=== PATIENT | female | born 1970 | race Caucasian/White ===

== ENCOUNTER 2017-11-15 12:03 | Outpatient (CLI) | payer BC ==
[~2017-11-15] VITALS: Ht 166.4 cm; Wt 82.6 kg
[2017-11-15] MEDS ORDERED: POTA99TA18 PO (12:17)
[2017-11-15] MEDS ORDERED: CYAN50008 PO (12:17)
[2017-11-15] MEDS ORDERED: MAGN250T13 PO (12:17)
[2017-11-15] MEDS ORDERED: ESTR1TAB24 PO (12:17)
[2017-11-15 12:27] VITALS: BP 121/84
[2017-11-15 13:13] LABS: BASOPHILS % (AUTO) 0 % (0-10); EOSINOPHILS # (AUTO) 0.1 10^3/uL (0.0-0.3); EOSINOPHILS % (AUTO) 1 % (0-10); LYMPHOCYTES # (AUTO) 1.4 X 10^3 (1.0-4.0); LYMPHOCYTES % (AUTO) 16 % (12-44); MEAN CORPUSCULAR HEMOGLOBIN 35 PG (25-34); MEAN CORPUSCULAR HGB CONC 34 G/DL (32-36); MEAN CORPUSCULAR VOLUME 103 FL (80-99); MEAN PLATELET VOLUME 9.9 FL (7.4-10.4); MONOCYTES # (AUTO) 0.6 X 10^3 (0.0-1.0); MONOCYTES % (AUTO) 7 % (0-12); NEUTROPHILS % (AUTO) 77 % (42-75); PLATELET COUNT 234 10^3/uL (130-400); RED BLOOD COUNT 4.43 10^6/uL (4.35-5.85); WHITE BLOOD COUNT 9.1 10^3/uL (4.3-11.0)
[2017-11-17] MEDS ORDERED: DOCU100C37 PO (12:25)
[2017-11-17] MEDS ORDERED: OXYC-465 PO (12:25)
[2017-11-17] MEDS ORDERED: IBUP-1780 PO (12:25)
== END 2017-11-15 13:26 | disposition home or self-care (01) ==
LOC: PREOP 12:03
PROVIDERS: ATTEND Obstetrics & Gynecology
DX: Z01.812 Encounter for preprocedural laboratory examination (principal); Z11.2 Encounter for screening for other bacterial diseases; R32 Unspecified urinary incontinence
CPT/HCPCS: 36415; 85025; 86850; 86900; 86901; 87081

== ENCOUNTER 2017-11-17 10:02 | Day surgery (SDC) | payer BC, OTHER ==
[~2017-11-17] VITALS: Ht 166.4 cm; Wt 82.6 kg
[~2017-11-17 10:02] MED LIST: CYAN50008 PO; ESTR1TAB24 PO; MAGN250T13 PO; POTA99TA18 PO
[2017-11-17] MEDS ORDERED: CATHETER FLUSH 10 ML SYR IV PRN (10:30)
[2017-11-17] MEDS ORDERED: ceFAZolin 1 GM/NS 50 ML IVPB IV ONE ×2 (10:30)
[2017-11-17] MEDS ORDERED: LACTATED RINGERS 1,000 ML IV PRN (11:18)
[2017-11-17] MEDS ORDERED: LEVO150T6 PO (11:20)
[2017-11-17 11:26] VITALS: BP 115/85
[2017-11-17] MEDS ORDERED: ceFAZolin INJECTION 1,000 MG in NS (IVPB) 50 ML IV ONE (11:30)
[2017-11-17] MEDS ORDERED: ESTROGENS CONJ IV 25 MG/5 ML (PREMARIN) VIAL IM ONE (11:30)
[2017-11-17] MEDS ORDERED: BUP/EPI 0.5% 1:200,000 (MARCAINE) 10ML VIAL IJ ONE (12:04)
[2017-11-17] MEDS ORDERED: ESTRADIOL VAGINAL CREAM 42.5 GM (ESTRACE) VG ONE (12:04)
[2017-11-17] MEDS ORDERED: LIDOCAINE PF 2% 5 ML (XYLOCAINE) VIAL ONE (12:06)
[2017-11-17] MEDS ORDERED: ONDANSETRON 4 MG/2 ML (SDV) Z0FRAN ONE ×2 (12:06→13:55)
[2017-11-17] MEDS ORDERED: ROCURONIUM 50 MG/5 ML (ZEMURON) VIAL IV ONE ×2 (12:06→13:33)
[2017-11-17] MEDS ORDERED: MIDAZOLAM 2 MG/2 ML (VERSED) VIAL ONE (12:06)
[2017-11-17] MEDS ORDERED: proPOfol 200 MG/20 ML (DIPRIVAN) VIAL IV ONE (12:06)
[2017-11-17] MEDS ORDERED: KETOROLAC 30 MG/ML VIAL ONE ×2 (12:07→13:55)
[2017-11-17] MEDS ORDERED: fentaNYL INJECTION 250 MCG/5 ML AMP ONE (12:07)
[2017-11-17] MEDS ORDERED: DEXAMETHASONE 10 MG/ML (DECADRON) 1 ML VIAL ONE (12:07)
--- NOTE | 2017-11-17 12:17 | Progress Note-Pre Operative ---
Pre-Operative Progress Note H&P Reviewed The H&P was reviewed, patient examined and no changes noted. Date Seen by Provider: Nov 17, 2017 Time Seen by Provider: 12:17 Date H&P Reviewed: Nov 17, 2017 Time H&P Reviewed: 12:17 Pre-Operative Diagnosis: uterovaginal prolapse and stress urinary incontinence MK OH MD Nov 17, 2017 12:17 pm
--- NOTE | 2017-11-17 12:18 | Progress Note-Post Operative ---
Post-Operative Progess Note Surgeon (s)/Live In Housekeeper Nanny (s) Surgeon MK OH MD Live In Housekeeper Nanny: Silva Bunch Pre-Operative Diagnosis uterovaginal prolapse and stress urinary incontinence Post-Operative Diagnosis same with pathology pending Procedure & Operative Findings Date of Procedure 11/17/17 Procedure Performed/Findings total laparoscopic hysterectomy and bilateral salpingo-oophorectomy with anterior posterior vaginal repairs with enterocele repair as well as a pubovaginal sling and cystoscopy performed by Dr. Braun Anesthesia Type GETA Estimated Blood Loss Estimated blood loss (mL): 100cc Specimens/Packing Specimens Removed uterus tubes and ovaries Packing: Kerlix gauze to the vagina MK OH MD Nov 17, 2017 12:18
[2017-11-17] MEDS ORDERED: DOCU100C37 PO (12:25)
[2017-11-17] MEDS ORDERED: OXYC-465 PO (12:25)
[2017-11-17] MEDS ORDERED: IBUP-1780 PO (12:25)
--- NOTE | 2017-11-17 12:26 | Discharge Instructions ---
Discharge Instructions Discharge Medications New, Converted or Re-Newed RX: RX on Chart Patient Instructions Patient Instructions: aas directed Return to The Hospital For: as directed Activity & Diet Discharge Diet: No Restrictions Activity as Tolerated: No Orders-Post D/C & Referrals Follow Up Appt: return to clinic on Tuesday, November 21, 2017 at 930 a.m. for staple removal Call to make follow up appt. for patient in 4 weeks. follow-up with Dr. Braun per his instructions Activity: Rest for 24 hours, than as tolerated. Wound Care: May remove Band-Aid tomorrow. Replace as desired. Keep incisions clean and dry. Wash daily with soap and water. Please call in RX to patient pharmacy. Diet: As tolerated-Clear Liquids only if nauseated. May shower or tub bathe as desired. No driving for 24 hours, no alcoholic beverages for 24 hours, and nothing per vagina (no tampons, douching, or intercourse) for 2 weeks. Patient to return to the clinic as soon as possible for: Temperature greater than 101F, Severe Pain, Foul discharge from incision or vagina, Excessive Bleeding (more than a period). MK OH MD Nov 17, 2017 12:26 pm
[2017-11-17] MEDS ORDERED: BUTORPHANOL INJ 2 MG/ML (STADOL) VIAL IV PRN (12:30)
[2017-11-17] MEDS ORDERED: WATER (STERILE) FOR INJ 10 ML BTL INJ ONE (12:30)
[2017-11-17] MEDS ORDERED: KETOROLAC 30 MG/ML VIAL IVP SCH (12:30)
[2017-11-17] MEDS ORDERED: PROCHLORPERAZINE 10 MG/2ML INJ (COMPAZINE) IV PRN (12:30)
[2017-11-17] MEDS ORDERED: BENZOCAINE/MENTHOL (DERMOPLAST) 56 ML CAN TP PRN (12:30)
[2017-11-17] MEDS ORDERED: ESTROGENS CONJ IV 25 MG/5 ML (PREMARIN) VIAL IVP ONE (12:30)
[2017-11-17] MEDS ORDERED: SEVOFLURANE (ULTANE) 15 ML INHAL SOLN ONE ×3 (12:54→13:58)
--- NOTE | 2017-11-17 14:25 | Progress Note-Pre Operative ---
Pre-Operative Progress Note H&P Reviewed The H&P was reviewed, patient examined and no changes noted. Date Seen by Provider: Nov 17, 2017 Time Seen by Provider: 14:24 Date H&P Reviewed: Nov 17, 2017 Time H&P Reviewed: 14:24 Pre-Operative Diagnosis: INCONTINENCE, OAB, ISD MILENA VALENCIA MD Nov 17, 2017 2:25 pm
--- NOTE | 2017-11-17 14:26 | Progress Note-Post Operative ---
Post-Operative Progess Note Surgeon (s)/Lamp Stack Developer (s) Surgeon MIELNA VALENCIA MD Lamp Stack Developer: ADRIANO Pre-Operative Diagnosis INCONTINENCE, OAB, ISD Post-Operative Diagnosis SAME Procedure & Operative Findings Date of Procedure 11/17/17 Procedure Performed/Findings PVS AND CYSTOSCOPY Anesthesia Type GENERAL Estimated Blood Loss Estimated blood loss (mL): NEGLIGIBLE Specimens/Packing Specimens Removed N/A Packing: Kerlix gauze to the vagina MILENA VALENCIA MD Nov 17, 2017 2:25 pm
[2017-11-17] MEDS: KETOROLAC 30 MG/ML VIAL IVP SCH ×2 (14:40→20:09)
[2017-11-17] MEDS: HYDROmorphone (DILAUDID) 2 MG/ML VIAL IVP PRN ×2 (14:55→15:05)
[2017-11-17] MEDS ORDERED: NEOSTIGMINE (BLOXIVERZ ) 1 MG/1ML 10 ML VIAL ONE (14:56)
[2017-11-17] MEDS ORDERED: GLYCOPYRROLATE 0.2 MG/ML (ROBINUL) 2 ML VIAL ONE (14:56)
[2017-11-17] MEDS ORDERED: KETOROLAC 30 MG/ML VIAL IVP ONE (15:00)
[2017-11-17] MEDS: D5 LR IV SOLUTION 1,000 ML IV SCH (16:09)
[2017-11-17 16:10] VITALS: BP 115/77
--- NOTE | 2017-11-17 20:09 | OPERATIVE REPORT ---
DATE OF SERVICE: 11/17/2017 PREOPERATIVE DIAGNOSES: Vaginal prolapse, stress urinary incontinence, uterine prolapse. POSTOPERATIVE DIAGNOSIS: Vaginal prolapse, stress urinary incontinence, uterine prolapse, with endometriosis and pelvic adhesions. OPERATIVE DESCRIPTION: With the patient in the supine position under satisfactory general anesthesia, she was repositioned in the dorsal lithotomy position in the [facility] and prepped and draped in the usual fashion for abdominal and vaginal surgery. Urinary bladder was drained via Garcia catheter to dependent drainage. A weighted speculum was placed in the posterior fornix of the vagina, cervix exposed and grasped anteriorly with single tooth tenaculum. Uterus sounded to 9 cm with uterine sound. The cervix was then serially dilated with Jostin dilators to accommodate a Sadia II manipulator, which was placed in the usual manner and secured to the cervix with sutures of #1 Vicryl placed at the 3 and 9 o'clock position. The patient was brought in low dorsolithotomy position. A 12 mm incision was made just superior to the umbilicus, an 8 mm incision was made 9 cm lateral to the umbilicus. The incision sites were infiltrated with 0.25% Marcaine with epinephrine prior to incision. Veress needle was placed through the upper midline incision and correct placement confirmed with water drop test. The abdomen was insufflated with 2.4 liters of carbon dioxide and then the Veress needle was removed and a 12 mm Optiview laparoscopic port placed. The abdominal wall was transilluminated and 8 mm ports were placed laterally. The patient was placed in Trendelenburg allowing the bowel to spill at least partially up out of the pelvis and then the operative instruments were placed and attached. Using a vessel sealer on the right and a bipolar fenestrated grasp on the left, the pelvis was first examined. There were extensive adhesions of the sigmoid to the left pelvic brim and into the cul-de-sac. The peritoneum throughout the pelvis was thickened and somewhat fibrotic likely due to scar tissue and remnants from old endometriosis. Both ovaries were fairly normal in appearance and showed several follicular cysts. The fallopian tubes were normal in appearance as well. The appendix was involved in a single linear adhesion the length of the appendix, running the appendix parallel to the fallopian tube and the IP ligament. The appendix was otherwise perfectly normal. The upper abdomen was examined. There was no abnormal pathology noted there. Laparoscope was brought back to the pelvis. An attempt was made to identify the ureter through the peritoneum at the pelvic brim on the right and because of the thickened peritoneum and the adipose tissue, the ureter could not be seen nor its movement detected. The IP ligament, however, was clearly delineated and the ureter was not up on the IP ligament. The IP ligament then was clamped, cauterized and divided with the vessel sealer that was continued across the mesovarium and across the round ligament, the broad ligament and down on the cardinal ligament allowing for removal of the tube and ovary eventually with the uterus. The peritoneum on the right was opened and dissection was carried down into the right pelvis in an attempt to identify the ureter. A couple times I could identify minute movement consistent with peristalsis but I never could reproduce it and get clear and adequate confirmation of that. Dissection was carried for several minutes and without locating the ureter definitively but being comfortable that it was well down out of the way, proceeded with the procedure with the plan to come back and reevaluate later. The procedure was continued by treating the left adnexa same as the right, allowing for removal of that tissue as well and then the anterior lower uterine segment peritoneum was divided with electrocautery and the bladder carefully dissected down off the lower uterine segment exposing the colpotomy ring through the vaginal wall. Colpotomy incision was then continued circumferentially until the entire colpotomy ring was exposed. This allowed for removal of the uterus with tubes and ovaries still attached through the vagina. The vaginal cuff was closed with two sutures of V-Loc elza sutures starting from the first angle, continued to the midpoint and then from left angle to the midpoint. The left ureter was difficult to identify as well, but it could seen reproduced with peristalsing well down away from the area of dissection and suturing and could be seen through the thickened peritoneum. The closure was performed in such a manner to ensure inclusion of the uterine vessels pedicles with the closure to ensure hemostasis. The pelvis was now irrigated and examined for hemostasis. That being complete, another effort was made to identify the right ureter. There were times again where I was certain that I could see it peristalsing but because of the thickened tissue and the amount of adipose, I did not want to dissect extensively, so being comfortable that the ureter was intact and functioning, I left it for Dr. Moreno to confirm on his cystoscopy later. The laparoscopic portion of the procedure was terminated. The operative instruments were removed under direct vision as were the ports. The abdomen was evacuated and insufflating gas in the process. The patient was brought out of Trendelenburg. The skin incisions were closed with zenon. The fascia at the supraumbilical incision was closed with [id number] suture of 2-0 Vicryl. The patient was now repositioned in dorsal lithotomy position for anterior and posterior repairs and for Dr. Moreno to perform a pubovaginal sling and cystoscopy. The anterior repair was performed by placing Maritza clamps on the anterior vaginal wall just distal to the midpoint. The vaginal wall was opened in the midline with Metzenbaum scissors and then dissection was carried into the vesicovaginal space to expose the bladder wall back to the pubic rami bilaterally. Dr. Moreno assumed care of the patient at this point and performed his pubovaginal sling to good effect and he also performed a cystoscopy and confirmed urine efflux from both ureteral orifices. For Dr. Moreno's portion of the procedure, I remained to assist. At this point, I resumed care of the patient and removed the redundant anterior vaginal wall muscularis mucosa and closed the vaginal wall with a running locked suture of 3-0 Vicryl Rapide. Good support was evident. Posterior repair was now performed by placing Maritza clamps on the perineum and the hymenal ring at 5 and 7 o'clock position and inverted triangle of skin was removed from the perineal body in an upright triangle from the posterior vaginal floor. The rectovaginal space was entered sharply and dissected bluntly to the apex of the vagina where it was explored. There was a small enterocele that was reduced and plicated with 2-0 Vicryl pursestring suture and then the rectovaginal space was obliterated with additional sutures of 2-0 Vicryl. The perineal body was restored with those same type sutures as well. Redundant posterior vaginal wall muscularis mucosa was removed sharply. The vaginal wall was closed with a running locked suture of 3-0 Vicryl Rapide. That closure was continued past the hymenal ring down on the perineal body and then back up subcutaneous to the hymenal ring where the suture was tied. Digital rectal exam during the dissection and on completion of the closure confirmed no stricture or stenosis of the rectum and no sutures into or through the rectal mucosa. The vagina was now filled with Estrace vaginal cream and a pack of Kerlix gauze was placed. Sponge and needle counts were correct at the end of the procedure. Estimated blood loss for procedure was around 100 mL. The patient tolerated the procedure well and was uneventfully awakened from her general anesthesia and transferred to recovery room in stable condition with plans for routine convalescent care. Job ID: [id number] DocumentID: [id number] Dictated Date: 11/17/2017 14:42:38 Paver Operator Date: 11/17/2017 20:08:19 Dictated By: MK OH MD
[2017-11-17 20:10] VITALS: BP 110/75
[2017-11-17 23:15] VITALS: BP 101/68
--- NOTE | 2017-11-18 00:11 | OPERATIVE REPORT ---
DATE OF SERVICE: 11/17/2017 PREOPERATIVE DIAGNOSIS: On my part, urinary incontinence. POSTOPERATIVE DIAGNOSIS: On my part, urinary incontinence. OPERATION PERFORMED: Pubovaginal sling and cystoscopy. SURGEON: Milena Valencia MD COLORS CUSTODIAN: Lane Joy MD COMPLICATIONS: None. PROCEDURE: After Dr. Joy performed the first part of his surgery that he will dictate. I went ahead and passed the Solyx device for the sling on both sides using the described technique. The sling was sitting nicely under the mid urethra with no tension and no twist. Cystoscopy was performed to confirm the integrity of the bladder, ureteral orifices and urethra. There was no foreign body. I left the bladder half full, removed the cystoscope, performed a manual Valsalva maneuver that was negative. I reinserted the Garcia catheter draining clear urine. Estimated blood loss on my part negligible and then Dr. Joy proceeded with the rest of his surgery that he will dictate. Job ID: [id number] DocumentID: [id number] Dictated Date: 11/17/2017 14:27:36 [employer] Machine Operator Date: 11/17/2017 20:10:22 Dictated By: MILENA VALENCIA MD
[2017-11-18] MEDS: oxyCODONE/APAP 10/325MG (PERCOCET 10) TABLET PO PRN ×2 (00:23→03:22)
[2017-11-18] MEDS: D5 LR IV SOLUTION 1,000 ML IV SCH (00:57)
[2017-11-18] MEDS: KETOROLAC 30 MG/ML VIAL IVP SCH (01:28)
[2017-11-18 03:36] VITALS: BP 101/67
[2017-11-18 08:36] VITALS: BP 104/68
[2017-11-18] MEDS ORDERED: ESTRADIOL 1 MG TAB (ESTRACE) PO SCH (09:00)
[2017-11-18] MEDS ORDERED: DOCUSATE SODIUM 100 MG (COLACE) CAP PO SCH (09:00)
--- NOTE | 2017-11-18 09:47 | Progress Note-Standard ---
Standard Progress Note Progress Notes/Assess & Plan Date Seen by Provider: Nov 18, 2017 Time Seen by Provider: 09:45 Progress/Assessment & Plan patient without complaint. She is ambulating, voiding, tolerating by mouth, has good pain control. Patient is requesting discharge home. She denies chest pain, denies shortness of breath, denies headache, and denies nausea vomiting. Vital Signs Date Time Temp Pulse Resp B/P (MAP) Pulse Ox O2 Delivery O2 Flow Rate FiO2 11/18/17 08:36 98.2 57 16 104/68 (80) 96 Room Air 11/18/17 03:36 98.0 65 18 101/67 (78) 96 Room Air 11/17/17 23:15 98.1 83 18 101/68 (79) 92 Room Air 11/17/17 20:10 97.9 89 18 110/75 (87) 93 Room Air 11/17/17 16:10 98.1 89 18 115/77 (90) 95 Room Air 11/17/17 11:26 97.5 97 16 115/85 (95) 96 Room Air I & O 11/18/17 07:00 Intake Total 1600 ml Output Total 2575 ml Balance -975 ml vital signs are stable. Patient is afebrile. The abdomen is benign. Extreme show clubbing or cyanosis. There is no Homans sign. Assessment and plan post operative day number 1 doing well. Plan is for discharge home with follow-up in clinic Final Diagnosis vaginal prolapse and stress urinary incontinence MK OH MD Nov 18, 2017 9:47 am
--- NOTE | 2017-11-18 10:30 | Progress Note-Urology ---
Progress Note-Urology Progress Notes/Assess & Plan Progress/Assessment & Plan VOIDING WELL, PVR 74CC, DRY, HAPPY, HOME WITH INSTRUCTIONS Final Diagnosis INCONTINENCE MILENA VALENCIA MD Nov 18, 2017 10:30 am
[2017-11-18] MEDS ORDERED: IBUPROFEN 800 MG (MOTRIN) TAB PO SCH (15:00)
== END 2017-11-18 11:15 | disposition home or self-care (01) ==
LOC: SDC 10:02 → LDRP 15:55 → SDC 11-18 11:15
PROVIDERS: ATTEND Obstetrics & Gynecology
DX: N81.4 Uterovaginal prolapse, unspecified (principal); N39.3 Stress incontinence (female) (male); N73.6 Female pelvic peritoneal adhesions (postinfective); N83.201 Unspecified ovarian cyst, right side; N83.202 Unspecified ovarian cyst, left side; N72 Inflammatory disease of cervix uteri; N88.8 Other specified noninflammatory disorders of cervix uteri; I10 Essential (primary) hypertension; E05.00 Thyrotoxicosis with diffuse goiter without thyrotoxic crisis or storm; F17.210 Nicotine dependence, cigarettes, uncomplicated; Z79.899 Other long term (current) drug therapy
CPT/HCPCS: 84703; 94664

== ENCOUNTER 2018-12-12 12:55 | Outpatient (CLI) | payer BC ==
[~2018-12-12] VITALS: Ht 166.4 cm; Wt 80.3 kg
[~2018-12-12 12:55] MED LIST changes: +DOCU100C37 PO; +IBUP-1780 PO; +LEVO150T6 PO; +OXYC-465 PO
[2018-12-12] MEDS ORDERED: MULT-141 PO (13:36)
[2018-12-12] MEDS ORDERED: SIMV10TA3 PO (13:36)
[2018-12-12] MEDS ORDERED: LEVO137T2 PO (13:36)
[2018-12-12] MEDS ORDERED: OMEP20TA33 PO (13:36)
[2018-12-12] MEDS ORDERED: DOCU100T7 PO (13:36)
[2018-12-12] MEDS ORDERED: CLON0.252 PO (13:36)
[2018-12-12] MEDS ORDERED: ALLO300T2 PO (13:36)
[2018-12-12] MEDS ORDERED: SOY50CAP PO (13:36)
[2018-12-12] MEDS ORDERED: AMLO10TA6 PO (13:36)
[2018-12-12] MEDS ORDERED: OMEG100032 PO (13:36)
[2018-12-12] MEDS ORDERED: LORA10TA76 PO (13:36)
[2018-12-13] MEDS ORDERED: HYDR-34 PO (16:16)
== END 2018-12-12 13:58 | disposition home or self-care (01) ==
LOC: PREOP 12:55
PROVIDERS: ATTEND Surgery
DX: Z01.818 Encounter for other preprocedural examination (principal)

== ENCOUNTER 2018-12-13 12:18 | Day surgery (SDC) | payer BC ==
[~2018-12-13] VITALS: Ht 166.4 cm; Wt 80.3 kg
[~2018-12-13 12:18] MED LIST changes: +ALLO300T2 PO; +AMLO10TA6 PO; +CLON0.252 PO; +DOCU100T7 PO; +LEVO137T2 PO; +LORA10TA76 PO; +MULT-141 PO; +OMEG100032 PO; +OMEP20TA33 PO; +SIMV10TA3 PO; +SOY50CAP PO
[2018-12-13 12:40] VITALS: BP 107/83
[2018-12-13] MEDS ORDERED: ceFAZolin 2 GM IV Premixed 50 ML IV ONE (12:45)
--- NOTE | 2018-12-13 12:58 | Progress Note-Pre Operative ---
Pre-Operative Progress Note H&P Reviewed The H&P was reviewed, patient examined and no changes noted. Date Seen by Provider: Dec 13, 2018 Time Seen by Provider: 12:45 Date H&P Reviewed: Dec 13, 2018 Time H&P Reviewed: 12:45 Pre-Operative Diagnosis: symptomatic ventral abd incisional hernia ERNESTINE DOBBINS MD Dec 13, 2018 12:58
[2018-12-13] MEDS ORDERED: ceFAZolin 2 GM IV Premixed 50 ML ONE (13:00)
[2018-12-13] MEDS ORDERED: fentaNYL INJECTION 100 MCG/2 ML AMP IVP PRN (13:00)
[2018-12-13] MEDS ORDERED: oxyCODONE/APAP 5/325MG (PERCOCET 5) TABLET PO PRN (13:00)
[2018-12-13] MEDS ORDERED: ACETAMINOPHEN 325 MG TABLET PO PRN (13:00)
[2018-12-13] MEDS ORDERED: METOCLOPRAMIDE INJ 10 MG/2 ML (REGLAN) IVP PRN (13:00)
--- NOTE | 2018-12-13 13:02 | Discharge Inst-Surgical ---
D/C Lap Instructions-MU Follow Up Appt in 2 weeks Activity as tolerated No driving for 24 hours No driving while on pain medications Incentive Spirometry use every 2 hours while awake Regular Diet Symptoms to Report: Fever over 101 degree F, Nausea/Vomiting Infection Signs and Symptoms to report: Increased redness, Foul odor of wound, Increased drainage Bathing instructions: May shower Operative Area Clean/Dry; Keep incision clean/dry If any problems/questions: Contact your physician or go to Emergency Room ERNESTINE DOBBINS MD Dec 13, 2018 13:02
[2018-12-13] MEDS: LACTATED RINGERS 1,000 ML IV PRN ×2 (13:06→14:40)
[2018-12-13] MEDS ORDERED: proPOfol 200 MG/20 ML (DIPRIVAN) VIAL IV ONE (13:23)
[2018-12-13] MEDS ORDERED: DEXAMETHASONE 10 MG/ML (DECADRON) 1 ML VIAL ONE (13:23)
[2018-12-13] MEDS ORDERED: ROCURONIUM 10 MG/ML 5 ML SYRINGE IV ONE (13:23)
[2018-12-13] MEDS ORDERED: LIDOCAINE PF 2% 5 ML (XYLOCAINE) VIAL ONE (13:23)
[2018-12-13] MEDS ORDERED: SEVOFLURANE (ULTANE) 15 ML INHAL SOLN ONE (13:23)
[2018-12-13] MEDS ORDERED: fentaNYL INJECTION 100 MCG/2 ML AMP ONE ×2 (13:24→14:36)
[2018-12-13] MEDS ORDERED: MIDAZOLAM 2 MG/2 ML (VERSED) VIAL ONE (13:24)
[2018-12-13] MEDS ORDERED: BUP/EPI 0.5% 1:200,000 (SENSORCAINE) 30 ML VIAL ONE (13:38)
[2018-12-13] MEDS ORDERED: GLYCOPYRROLATE 0.2 MG/ML (ROBINUL) 2 ML VIAL ONE (14:09)
[2018-12-13] MEDS ORDERED: NEOSTIGMINE 1 MG/ML 5 ML SYRINGE ONE (14:10)
--- NOTE | 2018-12-13 14:27 | Progress Note-Post Operative ---
Post-Operative Progess Note Surgeon (s)/Forest Examiner (s) Surgeon ERNESTINE DOBBINS MD Forest Examiner: linnea rowley AUTOMOTIVE ELECTRICIAN HELPER Pre-Operative Diagnosis symptomatic ventral abd incisional hernia Post-Operative Diagnosis same(3cm) Procedure & Operative Findings Date of Procedure 12/13/18 Procedure Performed/Findings open ventral abd incisional hernia repair with mesh. Anesthesia Type GET Estimated Blood Loss Estimated blood loss (mL): minimal Specimens/Packing Specimens Removed hernia sac ERNESTINE DOBBINS MD Dec 13, 2018 14:27
[2018-12-13] MEDS ORDERED: LACTATED RINGERS 1,000 ML IV ONE (14:36)
[2018-12-13] MEDS ORDERED: fentaNYL INJECTION 100 MCG/2 ML AMP IVP ONE (14:45)
[2018-12-13] MEDS ORDERED: HYDROmorphone 2 MG/ML VIAL (DILAUDID) ONE (14:54)
[2018-12-13] MEDS: HYDROmorphone 2 MG/ML VIAL (DILAUDID) IV ONE (14:55)
[2018-12-13] MEDS ORDERED: diphenhydrAMINE 50 MG/ML INJ (BENADRYL) ONE (15:22)
[2018-12-13] MEDS ORDERED: diphenhydrAMINE 50 MG/ML INJ (BENADRYL) IVP ONE ×2 (15:30→15:45)
[2018-12-13] MEDS ORDERED: HYDROmorphone 2 MG/ML VIAL (DILAUDID) IV ONE (15:30)
[2018-12-13 15:50] VITALS: BP 97/71
[2018-12-13] MEDS ORDERED: HYDR-34 PO (16:16)
[2018-12-13 16:20] VITALS: BP 101/73
[2018-12-13 16:50] VITALS: BP 98/67
--- NOTE | 2018-12-13 19:55 | OPERATIVE REPORT ---
DATE OF SERVICE: 12/13/2018 ATTENDING PHYSICIAN: Saad Ware DO. PREOPERATIVE DIAGNOSIS: Symptomatic reducible ventral abdominal incisional hernia. POSTOPERATIVE DIAGNOSIS: Symptomatic reducible ventral abdominal incisional hernia with the dimensions of the fascial defect 3 x 3 cm in size. PROCEDURE PERFORMED: Open ventral abdominal incisional hernia repair with mesh. SURGEON: Braulio Dobbins MD. LAP LAYER: Andrei Gibbons APRN. ANESTHESIA: General endotracheal. ESTIMATED BLOOD LOSS: Minimal. FINDINGS: Incisional hernia along the superior pole of a previous midline incision for an open urethral lithotomies. The fascial defect was 3 cm in diameter with nothing within the hernia sac. DISPOSITION: The patient tolerated the procedure well. INDICATIONS: The patient is a 48-year-old female who was referred over to us for a painful bulge in the supraumbilical region. She reports that the lesion was first detected approximately two years ago; however, the lesion has grown larger in size and become painful. She is tolerating a regular diet and having normal bowel movements; however, does have occasional episodes of nausea. She has a strong history of nephrolithiasis requiring open urethral lithotomies from an open midline approach x2 in 1995 and 1996. Upon examination in the office, she was found to have a symptomatic reducible ventral abdominal incisional hernia along the superior pole of the midline incision. DESCRIPTION OF PROCEDURE: The patient was brought to the operating room, laid supine on the table. After adequate IV pain and sedating medications and general endotracheal intubation, the abdomen was prepped and draped in standard surgical fashion. A 0.5% Marcaine with epinephrine was then used to anesthetize the overlying skin in the supraumbilical region. A vertical skin incision along the previous midline laparotomy incision was then made using a 15-blade. The hernia sac was identified and dissected out using blunt dissection as well as electrocautery. The hernia sac was then opened using Metzenbaum scissors with nothing within the hernia sac. The hernia sac was then excised using electrocautery under direct visualization. A rim of good fascia was then dissected around the defect using electrocautery. A 6.4 circular shape coated polypropylene mesh was then placed in the defect and sutured transfascially to the fascia using interrupted #0 Prolene sutures. Good hemostasis was observed. The subcutaneous tissue was then reapproximated using 2-0 Vicryl interrupted sutures. A subcutaneous layer was then also approximated with the same suture. Skin was closed using 4-0 Monocryl running subcuticular suture. Wound was then cleaned and covered with Dermabond. An abdominal binder was also placed. The patient tolerated the procedure well. We will start IV and oral pain medication as well as a clear liquid diet. When she is tolerating clears, has good pain control with oral pain medications and ambulating well, we will discharge her home. We will recommend no heavy lifting or exertion and no lifting above 15 pounds for the first 2 weeks and then slowly increase activity in a gradual stepwise fashion until six weeks from the surgery date. We will also recommend that she wear the abdominal binder both day and night and only to remove to do a shower. Job ID: [id number] DocumentID: [id number] Dictated Date: 12/13/2018 14:35:44 Mobility Developer Date: 12/13/2018 19:55:02 Dictated By: BRAULIO DOBBINS MD MTDD
== END 2018-12-13 16:50 | disposition home or self-care (01) ==
LOC: SDC 12:18
PROVIDERS: ATTEND Surgery
DX: K43.2 Incisional hernia without obstruction or gangrene (principal); I10 Essential (primary) hypertension; K21.9 Gastro-esophageal reflux disease without esophagitis; E03.9 Hypothyroidism, unspecified; E78.00 Pure hypercholesterolemia, unspecified; F17.210 Nicotine dependence, cigarettes, uncomplicated; Z79.899 Other long term (current) drug therapy
CPT/HCPCS: 87081

== ENCOUNTER 2019-02-17 12:09 | Emergency (ER) | payer BC ==
[~2019-02-17] VITALS: Ht 167.6 cm; Wt 79.4 kg
[~2019-02-17 12:09] MED LIST changes: -AMLO10TA6 PO; +AMLO10TA7 PO; +HYDR-34 PO
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
[2019-02-17] MEDS ORDERED: ASPIRIN 81 MG CHEW (CHILDREN'S ASA) PO ONE (12:30)
[2019-02-17 12:51] LABS: HEMOGLOBIN 15.4 G/DL (11.5-16.0); MEAN PLATELET VOLUME 9.5 FL (7.4-10.4); RED CELL DISTRIBUTION WIDTH 13.2 % (10.0-14.5); WHITE BLOOD COUNT 11.1 10^3/uL (4.3-11.0)
--- NOTE | 2019-02-17 12:52 | Diagnostic Imaging Report ---
INDICATION: Chest pain with past 4-5 days with cough.. TECHNIQUE: Two view chest 12:25 PM CORRELATION STUDY: None FINDINGS: The heart size, mediastinal configuration and pulmonary vasculature are within normal limits. The lungs are clear with no consolidating infiltrate. There is no significant pleural effusion or pneumothorax. Very slight accentuated thoracic kyphotic curvature with mild degenerative changes. IMPRESSION: 1. No radiographic evidence for acute abnormality of the chest. Dictated by: Dictated on workstation # [id number]
[2019-02-17] MEDS ORDERED: KETOROLAC 30 MG/ML VIAL IVP STA (13:09)
[2019-02-17 13:23] LABS: ALANINE AMINOTRANSFERASE 28 U/L (0-55); ALKALINE PHOSPHATASE 144 U/L (40-136); BILIRUBIN,TOTAL 0.9 MG/DL (0.1-1.0); BUN/CREATININE RATIO 9; CALCIUM 10.1 MG/DL (8.5-10.1); CARBON DIOXIDE 18 MMOL/L (21-32); CHLORIDE 98 MMOL/L (98-107); CREATININE SERUM 1.51 MG/DL (0.60-1.30); GFR ESTIMATED 37; GLUCOSE 119 MG/DL (70-105); MAGNESIUM 2.1 MG/DL (1.8-2.4); POTASSIUM 3.4 MMOL/L (3.6-5.0); SODIUM 139 MMOL/L (135-145)
[2019-02-17 13:24] LABS: ALBUMIN 4.6 GM/DL (3.2-4.5)
[2019-02-17 13:53] LABS: BACTERIA,URINE LARGE /HPF; BILIRUBIN,URINE NEGATIVE (NEGATIVE); CLARITY,URINE SL CLOUDY; COLOR,URINE YELLOW; GLUCOSE, URINE (UA) NEGATIVE (NEGATIVE); KETONES,URINE NEGATIVE (NEGATIVE); LEUKOCYTE ESTERASE ,URINE 3+ (NEGATIVE); NITRITE,URINE POSITIVE (NEGATIVE); PROTEIN,URINE 1+ (NEGATIVE); UROBILINOGEN,URINE 0.2 MG/DL (NORMAL); WBC,URINE 25-50 /HPF
[2019-02-17] MEDS ORDERED: RT-ALBUTEROL/IPRATROPIUM 3 ML (DUONEB) VIAL INH SCH (14:00)
[2019-02-17] MEDS ORDERED: NS IV 1000 ML 1,000 ML IV SCH (14:19)
[2019-02-17] MEDS ORDERED: cefTRIAXone FOR IV USE 2,000 MG in WATER (STERILE) FOR INJECTION 20 ML IV ONE (14:30)
--- NOTE | 2019-02-17 14:30 | Diagnostic Imaging Report ---
PROCEDURE: CT abdomen and pelvis without contrast. TECHNIQUE: Multiple contiguous axial images were obtained through the abdomen and pelvis without the use of intravenous contrast. Auto Exposure Controls were utilized during the CT exam to meet ALARA standards for radiation dose reduction. INDICATION: Left flank pain, history of kidney stones. COMPARISON: None FINDINGS: The lung bases are clear. Medullary calcifications are seen involving both kidneys. This could represent medullary sponge kidney and/or nephrocalcinosis. There is no overt hydronephrosis. This is slight atrophy of the left kidney. Bilateral ureters are grossly unremarkable. The urinary bladder is intact. There is no inflammatory process. The lumen of the gallbladder appears slightly hyperdense which could represent small stones or sludge. Otherwise, liver., spleen, pancreas, adrenal glands, small bowel are unremarkable. There is some minimal atherosclerosis of the abdominal aorta without aneurysm. There are few diverticuli of the sigmoid colon without diverticulitis. The visualized appendix is normal. The uterus is surgically absent. Distal ureters and/urinary bladder are normal. There is a focal area of induration within the anterior abdominal wall fat on the left just at the level of the pubis. There is a questionable venous channel. This may represent small venous anomaly. This is likely of little clinical significance. Please correlate with discoloration of the skin. Osseous structures are age-appropriate. IMPRESSION: 1. Chronic calcifications in both kidneys as described above. No hydronephrosis or inflammatory change is seen. Both ureters and urinary bladder have normal appearance. 2. Questionable gallbladder sludge versus stones. 3. Diverticulosis of the sigmoid colon without colitis. 4. Surgically absent uterus. 5. Questionable subcutaneous venous malformation at the level of the pubis within the subcutaneous tissues of the abdominal wall. This is likely of little clinical significance. Please correlate with skin discoloration. Dictated by: Dictated on workstation # [id number]
[2019-02-17] MEDS ORDERED: ACETAMINOPHEN 500 MG TAB (TYLENOL) PO STA (14:43)
[2019-02-17] MEDS ORDERED: METOCLOPRAMIDE INJ 10 MG/2 ML (REGLAN) IVP ONE (14:45)
[2019-02-17] MEDS ORDERED: PHENAZOPYRIDINE 100 MG (PYRIDIUM) TABLET PO ONE (14:45)
[2019-02-17] MEDS ORDERED: CEPH-507 PO (15:28)
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
[2019-02-17 16:05] VITALS: BP 140/76
== END 2019-02-17 16:05 | disposition home or self-care (01) ==
LOC: EDUNIT# 12:09 → ER FS 12:10
DX: N39.0 Urinary tract infection, site not specified (principal); I12.9 Hypertensive chronic kidney disease with stage 1 through stage 4 chronic kidney disease, or unspecified chronic kidney disease; N18.9 Chronic kidney disease, unspecified; R07.9 Chest pain, unspecified; E78.00 Pure hypercholesterolemia, unspecified; K21.9 Gastro-esophageal reflux disease without esophagitis; E03.9 Hypothyroidism, unspecified; E05.00 Thyrotoxicosis with diffuse goiter without thyrotoxic crisis or storm; F17.210 Nicotine dependence, cigarettes, uncomplicated; Z88.8 Allergy status to other drugs, medicaments and biological substances; Z87.19 Personal history of other diseases of the digestive system; Z88.5 Allergy status to narcotic agent; Z88.1 Allergy status to other antibiotic agents; Z77.22 Contact with and (suspected) exposure to environmental tobacco smoke (acute) (chronic); Z90.710 Acquired absence of both cervix and uterus; Z98.890 Other specified postprocedural states
CPT/HCPCS: 36415; 71046; 74176; 80053; 81000; 83605; 83735; 83880; 84484; 85027; 87040; 87077; 87088; 87186; 87804; 93005; 96361; 96374; 96375

== ENCOUNTER 2019-10-11 22:27 | Emergency (ER) | payer OTHER, BC ==
[~2019-10-11 22:27] MED LIST changes: +CEPH-507 PO
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
[2019-10-11 23:13] LABS: MEAN CORPUSCULAR HEMOGLOBIN 36 PG (25-34); WHITE BLOOD COUNT 12.3 10^3/uL (4.3-11.0)
[2019-10-11 23:14] LABS: BASOPHILS # (AUTO) 0.1 10^3/uL (0.0-0.1); BASOPHILS % (AUTO) 1 % (0-10); EOSINOPHILS # (AUTO) 0.2 10^3/uL (0.0-0.3); EOSINOPHILS % (AUTO) 1 % (0-10); HEMATOCRIT 49 % (35-52); LYMPHOCYTES % (AUTO) 25 % (12-44); MEAN CORPUSCULAR HGB CONC 33 G/DL (32-36); MEAN CORPUSCULAR VOLUME 109 FL (80-99); MEAN PLATELET VOLUME 9.5 FL (7.4-10.4); MONOCYTES # (AUTO) 0.8 X 10^3 (0.0-1.0); MONOCYTES % (AUTO) 7 % (0-12); NEUTROPHILS # (AUTO) 8.2 X 10^3 (1.8-7.8); NEUTROPHILS % (AUTO) 67 % (42-75); PLATELET COUNT 197 10^3/uL (130-400); RED CELL DISTRIBUTION WIDTH 14.6 % (10.0-14.5)
[2019-10-11 23:21] LABS: COLOR,URINE STRAW
[2019-10-11 23:22] LABS: BILIRUBIN,URINE NEGATIVE (NEGATIVE); CLARITY,URINE CLEAR; GLUCOSE, URINE (UA) NEGATIVE (NEGATIVE); KETONES,URINE NEGATIVE (NEGATIVE); LEUKOCYTE ESTERASE ,URINE 1+ (NEGATIVE); NITRITE,URINE NEGATIVE (NEGATIVE); PROTEIN,URINE 1+ (NEGATIVE)
[2019-10-11 23:27] LABS: BACTERIA,URINE FEW /HPF; RBC,URINE 0-2 /HPF; WBC,URINE 25-50 /HPF
[2019-10-11 23:29] LABS: ALANINE AMINOTRANSFERASE 34 U/L (0-55); ALBUMIN 4.6 GM/DL (3.2-4.5); ALKALINE PHOSPHATASE 162 U/L (40-136); BILIRUBIN,TOTAL 0.3 MG/DL (0.1-1.0); BUN/CREATININE RATIO 12; CALCIUM 9.2 MG/DL (8.5-10.1); CARBON DIOXIDE 17 MMOL/L (21-32); CHLORIDE 100 MMOL/L (98-107); CREATININE SERUM 1.46 MG/DL (0.60-1.30); GFR ESTIMATED 38; GLUCOSE 100 MG/DL (70-105); POTASSIUM 3.2 MMOL/L (3.6-5.0); SALICYLATE < 0.3 MG/DL (5.0-20.0); SODIUM 140 MMOL/L (135-145); TOTAL PROTEIN 7.7 GM/DL (6.4-8.2)
[2019-10-11 23:30] LABS: ACETAMINOPHEN < 10 UG/ML (10-30)
[2019-10-11 23:33] LABS: AMPHETAMINE SCREEN, URINE NEGATIVE (NEGATIVE); BARBITURATE SCREEN URINE NEGATIVE (NEGATIVE); BENZODIAZEPINES SCREEN URINE NEGATIVE (NEGATIVE); CANNABINOID SCREEN, URINE NEGATIVE (NEGATIVE); COCAINE SCREEN URINE NEGATIVE (NEGATIVE); METHADONE STAT NEGATIVE (NEGATIVE); METHAMPHETAMINE SCREEN URINE S NEGATIVE (NEGATIVE); OPIATE SCREEN URINE NEGATIVE (NEGATIVE); OXYCODONE STAT NEGATIVE (NEGATIVE); PROPOXYPHENE STAT NEGATIVE (NEGATIVE); TRICYCLIC ANTIDEPRESSANTS SCRE NEGATIVE (NEGATIVE)
[2019-10-11] MEDS ORDERED: CEPH500T PO (23:40)
[2019-10-11 23:48] VITALS: BP 114/72
== END 2019-10-11 23:46 | disposition home or self-care (01) ==
LOC: EDUNIT# 22:27 → ER FS 22:29
DX: S00.81XA Abrasion of other part of head, initial encounter (principal); F10.129 Alcohol abuse with intoxication, unspecified; N30.91 Cystitis, unspecified with hematuria; I10 Essential (primary) hypertension; F41.9 Anxiety disorder, unspecified; F32.9 Major depressive disorder, single episode, unspecified; E78.00 Pure hypercholesterolemia, unspecified; K21.9 Gastro-esophageal reflux disease without esophagitis; E03.9 Hypothyroidism, unspecified; Z87.442 Personal history of urinary calculi; Z88.8 Allergy status to other drugs, medicaments and biological substances; Z88.5 Allergy status to narcotic agent; Z88.1 Allergy status to other antibiotic agents; Z77.22 Contact with and (suspected) exposure to environmental tobacco smoke (acute) (chronic); Z90.710 Acquired absence of both cervix and uterus; W25.XXXA Contact with sharp glass, initial encounter
CPT/HCPCS: 36415; 80053; 80306; 80320; 80329; 81000; 85025; 87077; 87088

== ENCOUNTER → 2023-02-21 | Outpatient (CLI) | payer OTHER ==
[~2023-02-21] MED LIST changes: +AMLO-251 PO; -AMLO10TA7 PO; +ATOR80TA76 PO; +BUSP10TA95 PO; +CEPH500T PO; -CYAN50008 PO; +CYAN50009 PO; +EZET10TA49 PO; +MOME17SP11 NS; +MTP25TSR PO; -OXYC-465 PO; +OXYC-556 PO; +PANT40TA2 PO; +SIMV10TA26 PO; -SIMV10TA3 PO; +TRZ50T PO; +VARE1TAB24 PO; +VNL37.5T PO
--- NOTE | 2023-02-21 17:09 | Diagnostic Imaging Report ---
Indication: Right flank pain. Time of Exam: 4:09 PM Multiple calcific densities are identified in the left abdomen overlying the left renal shadow, likely renal calculi. Right kidney is largely obscured by overlying bowel gas and stool but appears to contain calcific densities as well. There are calcifications in the pelvis which are indeterminate but likely representing phleboliths. Bowel gas pattern is nonobstructed. IMPRESSION: There appear to be bilateral renal calculi. No other significant abnormality is detected. Dictated by: Dictated on workstation # [id number]
== END ==
LOC: RAD FS 15:59
PROVIDERS: ATTEND Emergency Medicine
DX: N20.1 Calculus of ureter (principal)
CPT/HCPCS: 74018

== ENCOUNTER 2023-02-23 05:33 | Outpatient (CLI) | payer OTHER ==
[~2023-02-23] VITALS: Ht 165.1 cm; Wt 71.6 kg
[~2023-02-23 05:33] MED LIST changes: -ATOR80TA76 PO; -BUSP10TA95 PO; -EZET10TA49 PO; -MOME17SP11 NS; -MTP25TSR PO; -PANT40TA2 PO; -TRZ50T PO; -VARE1TAB24 PO; -VNL37.5T PO
[2023-02-23] MEDS ORDERED: PANT40TA2 PO (12:45)
[2023-02-23] MEDS ORDERED: ceFAZolin INJECTION 1,000 MG in NS (IVPB) 50 ML IV ONE (13:00)
[2023-02-23] MEDS ORDERED: BUSP10TA95 PO (13:07)
[2023-02-23] MEDS ORDERED: EZET10TA49 PO (13:07)
[2023-02-23] MEDS ORDERED: MOME17SP11 NS (13:07)
[2023-02-23] MEDS ORDERED: VARE1TAB24 PO (13:07)
[2023-02-23] MEDS ORDERED: MTP25TSR PO (13:07)
[2023-02-23] MEDS ORDERED: ALLO300T2 PO (13:07)
[2023-02-23] MEDS ORDERED: LEVO150T6 PO (13:07)
[2023-02-23] MEDS ORDERED: VNL37.5T PO (13:07)
[2023-02-23] MEDS ORDERED: ATOR80TA76 PO (13:07)
[2023-02-23] MEDS ORDERED: TRZ50T PO (13:07)
== END 2023-02-23 12:56 | disposition home or self-care (01) ==
LOC: PREOP 05:33
PROVIDERS: ATTEND Surgery
DX: Z01.818 Encounter for other preprocedural examination (principal)

== ENCOUNTER 2023-03-02 11:08 | Day surgery (SDC) | payer OTHER ==
[~2023-03-02] VITALS: Ht 165.1 cm; Wt 71.6 kg
[2023-03-02] VITALS (10 sets, daily range): BP systolic 97–137; BP diastolic 71–85
[~2023-03-02 11:08] MED LIST changes: +ATOR80TA76 PO; +BUSP10TA95 PO; +EZET10TA49 PO; +MOME17SP11 NS; +MTP25TSR PO; +PANT40TA2 PO; +TRZ50T PO; +VARE1TAB24 PO; +VNL37.5T PO
[2023-03-02] MEDS ORDERED: ceFAZolin INJECTION 1,000 MG in NS (IVPB) 50 ML IV ONE (11:15)
[2023-03-02] MEDS ORDERED: MIDAZOLAM 2 MG/2 ML (VERSED) VIAL IV ONE (11:30)
[2023-03-02] MEDS ORDERED: ROCURONIUM 50 MG/5 ML (ZEMURON) VIAL IV ONE (11:32)
[2023-03-02] MEDS ORDERED: LIDOCAINE PF 2% 5 ML (XYLOCAINE) VIAL ONE (11:32)
[2023-03-02] MEDS ORDERED: proPOfol 200 MG/20 ML (DIPRIVAN) VIAL IV ONE (11:32)
[2023-03-02] MEDS ORDERED: MIDAZOLAM 2 MG/2 ML (VERSED) VIAL ONE (11:32)
[2023-03-02] MEDS ORDERED: fentaNYL INJ 100 MCG/2 ML AMP ONE ×3 (11:32→14:05)
[2023-03-02] MEDS ORDERED: BUP/EPI 0.5% 1:200,000 (SENSORCAINE) 30 ML VIAL ONE (11:39)
[2023-03-02] MEDS: LACTATED RINGERS 1,000 ML IV PRN ×2 (11:56→13:18)
--- NOTE | 2023-03-02 12:36 | Progress Note-Pre Operative ---
Pre-Operative Progress Note Date of Available H&P: Mar 02, 2023 Date H&P Reviewed: Mar 02, 2023 Time H&P Reviewed: 12:00 History & Physical: No changes noted Pre-Operative Diagnosis: recurrent ventral abd incisional hernia repair with mesh. ERNESTINE DOBBINS MD Mar 02, 2023 12:36
[2023-03-02] MEDS ORDERED: HYDR-3817 PO (12:40)
--- NOTE | 2023-03-02 12:41 | Discharge Inst-Surgical ---
D/C Lap Instructions-KIDO Reconcile Patient Problems Problems Reviewed?: Yes New, Converted, or Re-Newed RX: RX on Chart Follow Up Appt in 2 weeks Activity as tolerated No driving for 24 hours No driving while on pain medications Incentive Spirometry use every 2 hours while awake Regular Diet Symptoms to Report: Fever over 101 degree F, Nausea/Vomiting Infection Signs and Symptoms to report: Increased redness, Foul odor of wound, Increased drainage Bathing instructions: May shower Operative Area Clean/Dry; Keep incision clean/dry If any problems/questions: Contact your physician or go to Emergency Room PRICILA TROTTER APRN Mar 02, 2023 12:41
[2023-03-02] MEDS ORDERED: ACETAMINOPHEN 325 MG TABLET PO PRN (12:45)
[2023-03-02] MEDS ORDERED: HYDROcodone/APAP 7.5 MG/325 MG (LORTAB, LORCET PLUS) TABLET PO PRN (12:45)
[2023-03-02] MEDS ORDERED: METOCLOPRAMIDE INJ 10 MG/2 ML (REGLAN) IVP PRN (12:45)
[2023-03-02] MEDS ORDERED: fentaNYL INJ 100 MCG/2 ML AMP IVP PRN (12:45)
[2023-03-02] MEDS ORDERED: BUP/EPI 0.5% 1:200,000 (SENSORCAINE) 30 ML VIAL INJ ONE (12:52)
[2023-03-02] MEDS ORDERED: GLYCOPYRROLATE 0.2 MG/ML (ROBINUL) 2 ML VIAL ONE (13:14)
[2023-03-02] MEDS ORDERED: NEOSTIGMINE (BLOXIVERZ ) 1 MG/1ML 10 ML VIAL ONE (13:14)
--- NOTE | 2023-03-02 13:19 | Progress Note-Post Operative ---
Post-Operative Progess Note Surgeon (s)/Electric Organ Inspector And Repairer (s) Surgeon ERNESTINE DOBBINS MD Electric Organ Inspector And Repairer: linnea rowley STRUCTURAL TEST ENGINEER Pre-Operative Diagnosis recurrent ventral abd incisional hernia repair with mesh. Post-Operative Diagnosis same (2x3cm) Procedure & Operative Findings Date of Procedure 03/02/23 Procedure Performed/Findings open recurrent ventral abd incisional hernia repair with mesh. Anesthesia Type get Estimated Blood Loss Estimated blood loss (mL): minimal Specimens/Packing Specimens Removed none ERNESTINE DOBBINS MD Mar 02, 2023 13:19
[2023-03-02] MEDS ORDERED: SEVOFLURANE (ULTANE) 15 ML INHAL SOLN ONE (13:30)
--- NOTE | 2023-03-02 13:36 | Anesthesia-General Post-Op ---
General Patient Condition Mental Status/LOC: Same as Preop Cardiovascular: Satisfactory Nausea/Vomiting: Absent Respiratory: Satisfactory Pain: Controlled Complications: Absent Post Op Complications Complications None Follow Up Care/Instructions Patient Instructions None needed. Anesthesia/Patient Condition Patient Condition Patient is doing well, no complaints, stable vital signs, no apparent adverse anesthesia problems. No complications reported per nursing. KYLE CHESTER CRNA Mar 02, 2023 13:36
[2023-03-02] MEDS ORDERED: PROMETHAZINE INJ 25 MG/ML (PHENERGAN) AMP ONE (13:43)
[2023-03-02] MEDS ORDERED: PROMETHAZINE INJ 25 MG/ML (PHENERGAN) AMP IVP ONE (13:45)
[2023-03-02] MEDS ORDERED: fentaNYL INJ 100 MCG/2 ML AMP IVP ONE (13:45)
[2023-03-02] MEDS ORDERED: HYDROcodone/APAP 7.5 MG/325 MG (LORTAB, LORCET PLUS) TABLET PO ONE (14:58)
--- NOTE | 2023-03-02 21:06 | OPERATIVE REPORT ---
DATE OF SERVICE: 03/02/2023 ATTENDING PRIMARY CARE PHYSICIAN: Dr. Saad Ware. PREOPERATIVE DIAGNOSIS: Recurrent ventral abdominal incisional hernia. POSTOPERATIVE DIAGNOSES: Recurrent ventral abdominal incisional hernia with a defect approximately 3 x 2 cm in size. PROCEDURE: Open repair reducible recurrent ventral abdominal incisional hernia with mesh. SURGEON: Braulio Dobbins MD LOAN BROKER: Andrei Gibbons APRN ANESTHESIA: General endotracheal. ESTIMATED BLOOD LOSS: Minimal. FINDINGS: Fascial defect 3 x 2 cm in size with omentum within the hernia sac. DISPOSITION: The patient tolerated the procedure well. INDICATIONS: The patient is a 52-year-old female known to us. She had a previous midline laparotomy incision from which she states was a hysterectomy. We had seen approximately 3 years ago and she had developed an outpouching in the upper pole of the incision consistent with incisional hernia. We had repaired this around that time and she reports that several months later she did start noticing reoccurrence and this grew larger in size over time and became more painful. Upon examination, she was found to have a recurrent ventral abdominal incisional hernia, which was reducible; however, tender to palpation. She is otherwise eating well and having normal bowel movements. DESCRIPTION OF PROCEDURE: The patient was brought to the operating room, laid supine on the table. After adequate IV pain and sedative medications and general endotracheal intubation, the abdomen was prepped and draped in standard surgical fashion. A 0.5% Marcaine with epinephrine was then used to anesthetize the overlying skin in the supraumbilical region and a vertical skin incision was then made using a #15 blade. The hernia sac was then identified and dissected out using blunt dissection as well as electrocautery. We proceeded with the dissection until we reached the fascial base. The hernia sac was then opened using Metzenbaum scissors. There was only omentum within the hernia sac and the hernia sac was then completely excised under direct visualization using electrocautery. The fascial defect was approximately 2 x 3 cm in size. A 6.4 coated polypropylene mesh was then placed into the defect and sutured concentrically in a transfascial manner to the mesh using 0 Prolene interrupted sutures with visualization of good hemostasis. The subcutaneous tissue was then reapproximated using 3-0 Vicryl interrupted sutures and the skin was closed using 4-0 Monocryl running subcuticular suture. Wound was then cleaned and covered with Dermabond, followed by tonsil sponges, 4 x 4 gauze, large Op-Site and abdominal binder. The patient tolerated the procedure well. We will start IV normal pain medication as well as a clear liquid diet. Once she is tolerating clears, has good pain control with oral pain medication and is ambulating well, we will discharge her home where she will be instructed to do no heavy lifting or exertion for the next 6 weeks and to wear the abdominal binder for at least the next 2 weeks. Job ID: [id number] DocumentID: [id number] Dictated Date: 03/02/2023 13:24:32 Tubing Mill Setter Date: 03/02/2023 21:04:00 Dictated By: BRAULIO DOBBINS MD
== END 2023-03-02 15:25 | disposition home or self-care (01) ==
LOC: SDC 11:08
PROVIDERS: ATTEND Surgery
DX: K43.2 Incisional hernia without obstruction or gangrene (principal); F17.210 Nicotine dependence, cigarettes, uncomplicated; K21.9 Gastro-esophageal reflux disease without esophagitis; Z28.310 Unvaccinated for COVID-19
CPT/HCPCS: 87081; 94664